=== PATIENT | female | born 1975 ===

== ENCOUNTER 2019-07-26 17:34 | Inpatient (IN) | payer MEDICAID ==
[~2019-07-26] VITALS: Ht 172.7 cm; Wt 112.0 kg
[2019-07-26] MEDS ORDERED: TRIL4 PO (20:39)
[2019-07-26] MEDS ORDERED: PARO10TA89 PO (20:39)
[2019-07-26] MEDS ORDERED: OLAN10TA3 PO (20:39)
[2019-07-26] MEDS ORDERED: OLAN5TAB2 PO (20:39)
[2019-07-26] MEDS ORDERED: BUPR75 PO (20:41)
[2019-07-26] MEDS ORDERED: ASCO500 PO (20:41)
[2019-07-26] MEDS ORDERED: OMEG-135 PO (20:42)
[2019-07-26] MEDS ORDERED: ZINC220C14 PO (20:44)
[2019-07-26] MEDS ORDERED: VITA400C19 PO (20:45)
[2019-07-26] MEDS ORDERED: OLANZapine 5 MG RAPDIS TABLET PO PRN (21:45)
[2019-07-26] MEDS ORDERED: ZOLPIDEM TARTRATE 10 MG TABLET PO PRN (21:45)
[2019-07-26 22:07] VITALS: BP 124/73
[2019-07-26 22:52] VITALS: BP 104/81
[2019-07-27] MEDS ORDERED: NICOTINE 14 MG/24 HOUR PATCH TD PRN
[2019-07-27] MEDS ORDERED: IBUPROFEN 400 MG TABLET PO PRN
[2019-07-27] MEDS ORDERED: ONDANSETRON HCL 4 MG TABLET PO PRN
[2019-07-27] MEDS ORDERED: GuaiFENesin/D-METHORPHAN [SUGAR-FREE] 200-20MG/10 ML SYRUP UDCUP PO PRN
[2019-07-27] MEDS ORDERED: MAGNESIUM HYDROXIDE SUSPENSION 30 ML UDCUP PO PRN
[2019-07-27] MEDS ORDERED: ACETAMINOPHEN 325 MG TABLET PO PRN
[2019-07-27] MEDS ORDERED: ALBUTEROL SULFATE HFA 90 MCG/PUFF 8 GM INHALER IH PRN
[2019-07-27] MEDS ORDERED: CloNIDine HCL 0.1 MG TABLET PO PRN
[2019-07-27] MEDS ORDERED: LOPERAMIDE HCL 2 MG CAPSULE PO PRN
[2019-07-27] MEDS ORDERED: MAG HYDROX/AL HYDROX/SIMETH ES 30 ML SUSPENSION UDCUP PO PRN
[2019-07-27] MEDS ORDERED: PETROLATUM,WHITE 28 GM JELLY TP PRN
[2019-07-27] MEDS ORDERED: DOCUSATE SODIUM 100 MG CAPSULE PO PRN
[2019-07-27 04:15] VITALS: BP 123/72
[2019-07-27 07:57] LABS: BASOPHILS % (AUTO) 0.8 % (0.0-2.0); EOSINOPHILS % (AUTO) 3.2 % (1.0-6.0); HEMATOCRIT 41.6 % (36-46); HEMOGLOBIN 13.7 g/dL (12.0-16.0); LYMPHOCYTES # (AUTO) 1.5 K/uL (1.0-4.8); LYMPHOCYTES % (AUTO) 27.4 % (22.0-44.0); MEAN CORPUSCULAR HEMOGLOBIN 30.6 pg (26.0-34.0); MEAN CORPUSCULAR VOLUME 93 fL (80-100); MONOCYTES # (AUTO) 0.5 K/uL (0.1-1.0); MONOCYTES % (AUTO) 9.6 % (2.0-9.0); NEUTROPHILS # (AUTO) 3.1 K/uL (1.8-7.7); PLATELET COUNT (AUTO) 295 K/uL (150-450); RED BLOOD CELL COUNT(AUTO) 4.48 MIL/uL (4.00-5.20); RED CELL DISTRIBUTION WIDTH 14.1 % (11.5-14.5)
[2019-07-27 08:06] LABS: HEMOGLOBIN A1C 5.7 % (3.8-5.6)
[2019-07-27 08:19] VITALS: BP 133/73
[2019-07-27 08:24] LABS: ALANINE AMINOTRANSFERASE 21 U/L (12-78); ALBUMIN 3.5 g/dL (3.4-5.0); ALKALINE PHOSPHATASE 80 U/L (46-116); ANION GAP 8 mmol/L (8-16); ASPARTATE AMINOTRANSFERASE 18 U/L (15-37); BILIRUBIN,TOTAL 0.3 mg/dL (0.1-1.0); CALCIUM, TOTAL 8.7 mg/dL (8.8-10.5); CARBON DIOXIDE 27 mmol/L (22-29); CHLORIDE 107 mmol/L (98-107); CHOL/HDL RATIO 2.6 (3.9-5.7); CHOLESTEROL 148 mg/dL (131-200); CREATININE 0.71 mg/dL (0.60-1.30); FREE T4 (FREE THYROXINE) 0.76 ng/dL (0.76-1.46); GLOMERULAR FILTR. RATE CALC > 60 mL/min (>60); GLUCOSE,RANDOM 90 mg/dL (70-110); HCG,QUANTITATIVE < 1 mIU/mL (0-6); HDL CHOLESTEROL 56 mg/dL (40-60); LDL CHOL (CALC.) 80 mg/dL (0-130); POTASSIUM 4.2 mmol/L (3.5-5.1); SODIUM SERUM 142 mmol/L (136-145); THYROID STIMULATING HORMONE 1.24 uIU/mL (0.36-3.74); TOTAL PROTEIN, SERUM 6.9 g/dL (6.4-8.2); TRIGLYCERIDES 62 mg/dL (15-150); UREA NITROGEN, BLOOD 9 mg/dL (7-18)
[2019-07-27] MEDS: OMEGA-3/DHA/EPA/FISH OIL 1,000 MG CAPSULE PO SCH (08:29)
[2019-07-27] MEDS: VITAMIN E 400 UNITS CAPSULE PO SCH (08:29)
[2019-07-27] MEDS: ASCORBIC ACID 500 MG TABLET PO SCH (08:29)
[2019-07-27] MEDS: ZINC SULFATE 220 MG CAPSULE PO SCH (08:29)
[2019-07-27] MEDS: OLANZapine 5 MG TABLET PO SCH (14:50)
[2019-07-27] MEDS: BuPROPion HCL XL 150 MG ER TABLET PO SCH (14:50)
[2019-07-27 16:13] VITALS: BP 103/68
[2019-07-27] MEDS: PERPHENAZINE 4 MG TABLET PO SCH ×2 (16:36→21:00)
[2019-07-27] MEDS: OLANZapine 10 MG TABLET PO SCH (22:02)
[2019-07-27] MEDS: PARoxetine HCL 10 MG TABLET PO SCH (22:08)
[2019-07-28 06:09] VITALS: BP 105/64
[2019-07-28] MEDS: ZINC SULFATE 220 MG CAPSULE PO SCH (09:08)
[2019-07-28] MEDS: OMEGA-3/DHA/EPA/FISH OIL 1,000 MG CAPSULE PO SCH (09:08)
[2019-07-28] MEDS: VITAMIN E 400 UNITS CAPSULE PO SCH (09:08)
[2019-07-28] MEDS: ASCORBIC ACID 500 MG TABLET PO SCH (09:09)
[2019-07-28] MEDS: BuPROPion HCL XL 150 MG ER TABLET PO SCH (09:09)
[2019-07-28] MEDS: OLANZapine 5 MG TABLET PO SCH (09:10)
[2019-07-28] MEDS: PERPHENAZINE 4 MG TABLET PO SCH ×3 (09:11→20:37)
[2019-07-28 09:25] LABS: APPEARANCE,URINE CLEAR (CLEAR); BILIRUBIN,URINE NEGATIVE (NEGATIVE); GLUCOSE, URINE (UA) NEGATIVE (NEGATIVE); KETONES,URINE NEGATIVE (NEGATIVE); LEUKOCYTE ESTERASE ,URINE TRACE (NEGATIVE); NITRATE,URINE NEGATIVE (NEGATIVE); OCCULT BLOOD,URINE NEGATIVE (NEGATIVE); PROTEIN,URINE NEGATIVE (NEGATIVE); UROBILINOGEN,URINE 0.2 mg/dL (<=1.0)
[2019-07-28 09:31] LABS: AMPHET/METH SCREEN,URINE NEGATIVE (NEGATIVE); BARBITURATE SCREEN, URINE NEGATIVE (NEGATIVE); BENZODIAZEPINES SCREEN,URINE NEGATIVE (NEGATIVE); CANNABINOID SCREEN,URINE NEGATIVE (NEGATIVE); COCAINE SCREEN,URINE NEGATIVE (NEGATIVE); METHADONE SCREEN, URINE NEGATIVE (NEGATIVE); OPIATE SCREEN,URINE NEGATIVE (NEGATIVE)
[2019-07-28 09:32] LABS: PHENCYCLIDINE SCREEN,URINE NEGATIVE (NEGATIVE)
[2019-07-28 09:46] VITALS: BP 108/74
[2019-07-28 12:23] LABS: BACTERIA,URINE None Seen /HPF (None Seen); RBC,URINE 0-2 /HPF (0-2); SQUAMOUS EPITHELIAL CELL,UR Moderate /LPF (None Seen); WBC,URINE 0-2 /HPF (0-5)
[2019-07-28 19:33] VITALS: BP 127/78
[2019-07-28] MEDS: PARoxetine HCL 10 MG TABLET PO SCH (20:37)
[2019-07-28] MEDS: OLANZapine 10 MG TABLET PO SCH (20:37)
[2019-07-29 05:18] VITALS: BP 125/74
[2019-07-29] MEDS: OMEGA-3/DHA/EPA/FISH OIL 1,000 MG CAPSULE PO SCH (08:06)
[2019-07-29] MEDS: ZINC SULFATE 220 MG CAPSULE PO SCH (08:06)
[2019-07-29] MEDS: OLANZapine 5 MG TABLET PO SCH (08:06)
[2019-07-29] MEDS: ASCORBIC ACID 500 MG TABLET PO SCH (08:06)
[2019-07-29] MEDS: VITAMIN E 400 UNITS CAPSULE PO SCH (08:06)
[2019-07-29] MEDS: BuPROPion HCL XL 150 MG ER TABLET PO SCH (08:06)
[2019-07-29 08:29] VITALS: BP 125/83
[2019-07-29] MEDS: PERPHENAZINE 4 MG TABLET PO SCH ×3 (09:12→21:14)
[2019-07-29 16:00] VITALS: BP 130/85
[2019-07-29] MEDS: OLANZapine 10 MG TABLET PO SCH (21:14)
[2019-07-29] MEDS: PARoxetine HCL 10 MG TABLET PO SCH (21:14)
[2019-07-30 05:31] VITALS: BP 101/60
[2019-07-30] MEDS: ASCORBIC ACID 500 MG TABLET PO SCH (08:15)
[2019-07-30] MEDS: PERPHENAZINE 4 MG TABLET PO SCH ×3 (08:16→20:47)
[2019-07-30] MEDS: BuPROPion HCL XL 150 MG ER TABLET PO SCH (08:16)
[2019-07-30] MEDS: OLANZapine 5 MG TABLET PO SCH (08:16)
[2019-07-30] MEDS: ZINC SULFATE 220 MG CAPSULE PO SCH (08:16)
[2019-07-30] MEDS: OMEGA-3/DHA/EPA/FISH OIL 1,000 MG CAPSULE PO SCH (08:16)
[2019-07-30] MEDS: VITAMIN E 400 UNITS CAPSULE PO SCH (08:16)
[2019-07-30 08:31] VITALS: BP 118/73
[2019-07-30 16:58] VITALS: BP 135/88
[2019-07-30] MEDS: PARoxetine HCL 10 MG TABLET PO SCH (20:47)
[2019-07-30] MEDS: OLANZapine 10 MG TABLET PO SCH (20:47)
[2019-07-31] VITALS: BP 112/71
[2019-07-31] MEDS: OLANZapine 5 MG TABLET PO SCH (08:02)
[2019-07-31] MEDS: VITAMIN E 400 UNITS CAPSULE PO SCH (08:02)
[2019-07-31] MEDS: OMEGA-3/DHA/EPA/FISH OIL 1,000 MG CAPSULE PO SCH (08:02)
[2019-07-31] MEDS: ASCORBIC ACID 500 MG TABLET PO SCH (08:02)
[2019-07-31] MEDS: BuPROPion HCL XL 150 MG ER TABLET PO SCH (08:02)
[2019-07-31] MEDS: ZINC SULFATE 220 MG CAPSULE PO SCH (08:02)
[2019-07-31] MEDS: PERPHENAZINE 4 MG TABLET PO SCH ×3 (08:09→20:52)
[2019-07-31 08:26] VITALS: BP 115/78
[2019-07-31 16:30] VITALS: BP 120/70
[2019-07-31] MEDS: PARoxetine HCL 10 MG TABLET PO SCH (20:52)
[2019-07-31] MEDS: OLANZapine 10 MG TABLET PO SCH (20:52)
[2019-08-01] VITALS: BP 119/73
[2019-08-01] MEDS: ZINC SULFATE 220 MG CAPSULE PO SCH (08:04)
[2019-08-01] MEDS: OMEGA-3/DHA/EPA/FISH OIL 1,000 MG CAPSULE PO SCH (08:04)
[2019-08-01] MEDS: ASCORBIC ACID 500 MG TABLET PO SCH (08:04)
[2019-08-01] MEDS: OLANZapine 5 MG TABLET PO SCH (08:04)
[2019-08-01] MEDS: VITAMIN E 400 UNITS CAPSULE PO SCH (08:04)
[2019-08-01] MEDS: BuPROPion HCL XL 150 MG ER TABLET PO SCH (08:04)
[2019-08-01] MEDS: PERPHENAZINE 4 MG TABLET PO SCH (08:06)
[2019-08-01 08:27] VITALS: BP 122/82
[2019-08-01] MEDS ORDERED: PARO30TA76 PO ×2 (15:45→15:47)
[2019-08-01] MEDS ORDERED: OLAN20TA20 PO (15:46)
[2019-08-01 16:48] VITALS: BP 121/69
== END 2019-08-01 16:45 | DRG 750 ==
LOC: B3A 21:49
DX: F25.1 Schizoaffective disorder, depressive type (principal); E83.51 Hypocalcemia; E66.9 Obesity, unspecified; E11.9 Type 2 diabetes mellitus without complications; Z79.899 Other long term (current) drug therapy; Z81.8 Family history of other mental and behavioral disorders; Z91.5 Personal history of self-harm; Z68.37 Body mass index [BMI] 37.0-37.9, adult; Z88.8 Allergy status to other drugs, medicaments and biological substances; Z79.891 Long term (current) use of opiate analgesic; Z79.1 Long term (current) use of non-steroidal anti-inflammatories (NSAID); Z79.83 Long term (current) use of bisphosphonates; Z03.818 Encounter for observation for suspected exposure to other biological agents ruled out
CPT/HCPCS: 80307; 83036; 84439; 84443